=== PATIENT | female | born 1965 | race Caucasian/White ===

== ENCOUNTER 2024-11-07 21:01 | Inpatient (IN) | payer OTHER, SELFPAY ==
[2024-11-07] VITALS (8 sets, daily range): BP systolic 116–148; BP diastolic 74–96; BMI 36.1; BMI 34.9
--- NOTE | 2024-11-07 15:37 | ED.GENMED ---
History of Present Illness
General
Chief Complaint: Breathing Problem
Source: patient, ambulance crew, alf and alf records
Exam Limitations: none
Time Seen by Provider: 11/07/24 15:22
Nursing documentation reviewed up to this point in time: agreed with
History of Present Illness
History of Present Illness:
59-year-old female with past medical history of seizures, hypertension, diabetes, reported history of CVA, history of alcohol use, anxiety/depression, bipolar disorder, prior suicidality, history of VSD repair in childhood who presents to the
emergency room from [facility] via EMS for evaluation of shortness of breath. Patient notes that she has been at [facility] for about a month. She says that she went there after suffering a minor stroke that required
rehab. She is not sure where she received her care for stroke but she says that she was hospitalized for a few days. She says that she is here today for shortness of breath that started last night. She says that in the middle of the night she
started to feel shortness of breath and heaviness in her chest and it has been consistent since onset. She reports that she has had associated mild nonproductive cough. She says she has had some swelling in the legs over the past few days. She is
not sure whether she has had any weight gain. She denies any abdominal pain, nausea, vomiting. Denies fever or chills. She denies any URI symptoms. She says that she disclosed her symptoms to the physician at [facility] this morning who
reportedly sent her for an x-ray of the chest. Patient says that she was told chest x-ray was abnormal but she is not sure exactly what it showed. She was referred to the ER for assessment.
In triage patient suicide screen was positive. Patient says that she has a history of suicidal thoughts and depression. She says that she has had some suicidal thoughts today but she is very vague about them and it sounds like she is more
overwhelmed by her symptoms than anything. Denies specific plan.
Review of Systems
Review of Systems
All Other Systems: ROS reviewed and negative except as documented in HPI and ROS
Constitutional: Denies fever or chills
Respiratory: Reports cough and trouble breathing
Cardiac: Reports chest pain; Denies diaphoresis or palpitations
ABD/GI: Denies abdominal pain, nausea or vomiting
: Denies flank pain
Musculoskeletal: Reports edema; Denies neck pain or back pain
Neurological: Denies dizzy or headache
Psychiatric: Reports depression, anxiety and suicidal
Phy Exam
Physical Exam
Physical Exam:
General: Awake, alert, oriented x3; tearful and anxious
Head: Normocephalic, atraumatic
Eyes: Conjunctiva normal, sclera anicteric
Throat: Airway intact, handling secretions
Neck: Trachea midline, no JVD noted
Lungs: Occasional coughing, no tachypnea, no hypoxia; she has no focal wheezing or rales
Heart: Tachycardia with regular rhythm, no murmurs, gallops, or rubs
Abd: Soft, non distended, nontender
Neuro: Grossly intact
Extremities: Patient has edema in the lower extremities bilaterally +1; good pulses throughout
Psych: Depressed mood, anxious affect
Scores
Heart Failure Risk
Heart Failure Risk Score: Not Applicable
Heart Score for Chest Pain Patients
STEMI patient?: Not applicable
Withdrawal Assessment of Alcohol
Withdrawal Assessment Completed?: Not applicable
Course
Orders/Labs/Results
Orders:
Orders
11/07/24 15:17
Electrocardiogram (*1) Urgent
Reason for Study: Shortness of Breath
11/07/24 15:18
EKG- Treatment ONCE
11/07/24 15:23
CR Chest Portable - 1 View Urgent
Comment:
Reason For Exam: sob
Reason Study Needs to be Portable: Unable to Transport
11/07/24 15:29
ED Special Safety Observation ONCE
Observation level: Intermittent Observation
11/07/24 15:37
Lorazepam [Ativan] 0.5 mg PO NOW STA
11/07/24 15:48
Crisis Consult Routine
Reason for Consult: suicidal ideation
11/07/24 16:06
Lorazepam [Ativan] 0.5 mg PO NOW STA
11/07/24 17:22
Complete Blood Count/With Diff Urgent
Comprehensive Metabolic Panel Urgent
Pro-BNP [NT-proBNP] Urgent
Troponin I Urgent
Midazolam HCl [Versed] 1 mg IV NOW STA
11/07/24 18:02
CT Chest PE Study Urgent
Comment:
Reason For Exam: SOB, tachycardia
11/07/24 18:12
Diphenhydramine [Benadryl] 50 mg IV NOW STA
Hydrocortisone Sod Succinate [Solu-Cortef] 200 mg IV NOW STA
11/07/24 19:13
Urine Drug Abuse Screen Urgent
Date Specimen was Collected: 11/07/24
Time Specimen was Collected: 19:13
11/07/24 19:35
Midazolam HCl [Versed] 2 mg .ROUTE .STK-MED ONE
11/07/24 19:37
Famotidine [Pepcid] 20 mg IV NOW STA
11/07/24 19:40
Midazolam HCl [Versed] 1 mg IV NOW STA
11/07/24 20:00
Furosemide [Lasix] 40 mg IV NOW STA
11/07/24 20:01
PSYCHIATRY CONSULT Urgent
Consulting Provider: Leif Harding
Was physician already notified: Yes
Abnormal Lab Results
11/07/24
17:22
RBC 3.87 L 10^6/uL
(4.20-5.40)
Hgb 11.1 L g/dL
(12.0-16.0)
Hct 33.4 L %
(37.0-47.0)
MPV 11.4 H fL
(7.4-10.4)
Absolute Monos (auto) 0.8 H 10^3/uL
(0.1-0.6)
BUN 24 H mg/dl
(7-17)
Glucose 180 H mg/dl
(70-99)
Total Protein 8.3 H g/dl
(6.3-8.2)
11/07/24 17:22
11/07/24 17:22
Vital Signs
Initial and Last Documented VS:
Initial Vital Signs
BP
148/88
11/07/24 15:17
Last Documented Vital Signs
Temp Pulse Resp BP Pulse Ox
36.5 C 100 17 133/87 97
11/07/24 15:18 11/07/24 19:15 11/07/24 19:15 11/07/24 19:00 11/07/24 16:37
MDM/Problems Addressed
Differential Diagnosis Includes:
Dysrhythmia/atrial fibrillation, congestive heart failure, pneumonia, pulmonary embolism, anxiety, alcohol withdrawal
MDM/Problems Addressed:
59-year-old female presents to the ER from rehab at [facility] for evaluation of shortness of breath as described above. She is tachycardic but otherwise normal vitals. EKG reviewed and shows tachycardia with some anterior lateral T wave
inversions/ST depressions�no priors available for comparison. Plan to place an IV check labs including a CBC and a CMP, troponin, proBNP. Will check chest x-ray. Regarding her positive suicide screen�patient reports vague thoughts, no specific
plan, correlates to her symptoms. Will place on intermittent observation for now, will need psychiatry assessment once her acute medical issues are addressed�will discuss with crisis to assess for now.
Labs reviewed: CBC shows marginal anemia, CMP no clinically significant abnormalities�random glucose 180 in the setting of known diabetes. Her troponin is undetectable. proBNP not elevated. Chest x-ray shows no signs of congestive heart failure
or pneumonia. At this point patient remains tachycardic and with nothing acute noted on x-ray, recent hospitalization noted I think she needs to be evaluated for pulmonary embolism. Sent for a CT chest to rule out PE.
CT PE reviewed and does show signs consistent with some pulmonary edema; although her proBNP is not markedly elevated she does have increased leg swelling, shortness of breath, cough and overall clinical picture concerning for congestive heart
failure. No documented history. Will treat with IV Lasix. Admit for continued management. She has had continued severe anxiety requiring anxiolytics here. She has continued to complain of suicidality. Case was discussed with psychiatry to
consult while admitted. Discussed case with hospitalist.
Chronic conditions affecting care:
Anxiety/depression, hypertension, diabetes
*Radiology
Radiology exam reviewed: preliminary read by ED provider
*Pulse Oximetry
SaO2: 96
Oxygen Mode of Delivery: Room air
Patient hypoxic: no (96%)
*EKG
Interpreted by ED Provider?: Yes
Heart Rate: 121
Rate: tachycardiac
Rhythm: sinus tachycardia
[place]: normal axis
Interval: normal interval
QRS Pattern: normal QRS
Ischemia: ST depression (Anterior lateral ST and T wave abnormalities)
*Critical Care Note
Total Time (30-74mins, 75-104mins- exclusive of procedures): Not Applicable
Data Reviewed
Source: patient, ambulance crew, alf and alf records
Patient Management
Discussion with other providers: Hospitalist (Discussed with hospitalist) and [employer] (Discussed with psychiatry)
Escalation/DeEscalation of care consider admission/obs:
Admission indicated
ED Attending Note
-
Portions of this chart may have been created with voice recognition software.� Occasional wrong word or��sound alike� substitutions may have occurred due to the inherent limitations of voice recognition software.
Discharge Plan
Departure
Patient Disposition: Admit
Date of Disposition: 11/07/24
Time of Disposition: 20:03
Admit to doctor: Odette
Presentation/result/management discussed w/ accepting MD/DO: Hospitalist
Discharge Problem:
CHF (congestive heart failure), Suicidal ideations, Anxiety
Prescriptions:
No Action
clonidine HCl 0.1 mg Tablet
0.1 mg PO TID
acetaminophen [Tylenol] 325 mg Tablet
650 mg PO Q6HPRN PRN (Reason: mild pain)
lidocaine 4 % Adhesive Patch,Medicated
1 patch TOPICAL DAILY
divalproex 250 mg Tablet,Delayed Release (Dr/Ec)
250 mg PO BID
lorazepam 0.5 mg Tablet
0.5 mg PO BIDPRN PRN (Reason: anixety)
magnesium hydroxide [Milk of Magnesia] 400 mg/5 mL Suspension
2,400 mg PO [id number] PRN (Reason: constipation)
bisacodyl [Dulcolax (bisacodyl)] 10 mg Suppository
10 mg OH DAILYPRN PRN (Reason: if no bm aftr mom)
diphenhydramine HCl [Benadryl] 25 mg Capsule
25 mg PO DAILYPRN PRN (Reason: allergies)
promethazine 25 mg Tablet
25 mg PO Q6HPRN PRN (Reason: nausea)
Fleet Enema 19-7 gram/118 mL Enema
118 ml OH DAILYPRN PRN (Reason: if no bm aftr duloclax)
docusate sodium [Colace] 100 mg Capsule
100 mg PO BID
zolpidem [Ambien] 5 mg Tablet
5 mg PO HSPRN PRN (Reason: sleep)
furosemide [Lasix] 20 mg Tablet
10 mg PO DAILY
nystatin 100,000 unit/gram Powder
1 applic TOPICAL BIDPRN PRN (Reason: b/l breasts)
lorazepam 1 mg Tablet
1 mg PO TID
pregabalin [Lyrica] 50 mg Capsule
50 mg PO DAILY
pregabalin [Lyrica] 100 mg Capsule
100 mg PO HS
estradiol 10 mcg Tablet
10 mcg VAGINAL MOTH@2100
buprenorphine-naloxone [Suboxone] 8-2 mg Film
2 film BUCCAL DAILY
ubrogepant 50 mg Tablet
50 mg PO [id number] PRN (Reason: migraines)
Referrals:
Nahun Fuller, [Family Provider, Internal Medicine]
Interventions
Interventions:
*Risk Screen - Suicide Last Done: 11/07/24 15:20
*General Assessment Last Done: 11/07/24 15:22
*Neglect/Abuse Screening Last Done: 11/07/24 15:20
*ED- Fall Risk Assessment Last Done: 11/07/24 15:22
*ED COVID-19 Vaccine History Last Done: 11/07/24 15:22
ED- Cardiac Assessment Last Done: 11/07/24 15:24
ED- Pulmonary Assessment Last Done: 11/07/24 15:24
Discharge Date and Time
Print Language: TAJIK
[2024-11-07] MEDS: ATIVAN 0.5 MG PO ×2 (15:48→16:06)
--- NOTE | 2024-11-07 16:43 | VATNOTE ---
attempted x3 vascular access by this VAT RN; obtained only 1 lab; another VAT RN attempted as well without success. PCN made aware ED MD to attempted USG IV.
[2024-11-07 17:32] LABS: Hematocrit 33.4 % (37.0-47.0); Hemoglobin 11.1 g/dL (12.0-16.0); Mean Corp Hgb Conc. 33.2 g/dL (33.0-37.0); Mean Corpuscular Volume 86.3 fL (81.0-99.0); Nucleated Red Blood Cells % 0 %; Platelet Count 242 10^3/uL (130-400); Red Cell Dist. Width 13.7 % (11.5-14.5)
[2024-11-07 17:46] LABS: ALT (SGPT) 25 U/L (0-35); AST (SGOT) 31 U/L (14-36); Albumin 4.5 g/dl (3.5-5.0); Alkaline Phosphatase 99 U/L (38-126); Blood Urea Nitrogen 24 mg/dl (7-17); Calcium 9.0 mg/dl (8.4-10.2); Carbon Dioxide 26 mmol/L (22-30); Chloride 99 mmol/L (98-107); Estimated Creatinine Clearance 116 ml/min; Glucose 180 mg/dl (70-99); Potassium 3.8 mmol/L (3.5-5.1); Sodium 137 mmol/L (135-145); Total Protein 8.3 g/dl (6.3-8.2); eGFR > 60.00
[2024-11-07] MEDS: VERSED 1 MG IV ×2 (17:53→19:40)
[2024-11-07 17:57] LABS: Troponin I < 0.012 ng/ml
[2024-11-07] MEDS: BENADRYL 50 MG IV (18:21)
[2024-11-07] MEDS: SOLU-CORTEF 200 MG IV (18:21)
[2024-11-07] MEDS: PEPCID 20 MG IV (19:46)
--- NOTE | 2024-11-07 20:24 | HPS.HSE ---
Family Physician
-
Family Physician: Nahun Fuller, DO
Chief Complaint
-
sob
History of Present Illness
59-year-old female with past medical history of seizures, hypertension, diabetes, reported history of CVA, history of alcohol use, anxiety/depression, bipolar disorder, prior suicidality, history of VSD repair in childhood who presents to the
emergency room from [facility] via EMS for evaluation of shortness of breath which started last night. patient stated chest heaviness. stated sob with exertion. she is not able to lay flat due to sob. she gained 12lbs in two
boths. she is also noted to haveb/l LE edema. right leg is greater than the left. stated cough. denied fever, chills. denied ALBA< dizzy or syncope.denied abdominal pain,nv,d. denied dysuria or hematuria.
Patient notes that she has been at [facility] for about a month. She says that she went there after suffering a minor stroke that required rehab. She is not sure where she received her care for stroke but she says that she was hospitalized for a
few days. she does not want to go back to [place]
she is is depressed and sad because her son is in marine at [place]. her at [place].In triage patient suicide screen was positive. Patient says that she has a history of suicidal thoughts and depression. She says that she has had
some suicidal thoughts today but not sure how she will do that.
chest x ray with pulmonary edema. she received Lasix in ER. admitting for further management.
Medical History
Past Medical History
Past Medical History: Reports Other
Additional Past Medical History:
Alcohol abuse
Seizures
Hypertension
Chronic pain
Depression
Benign neoplasm of meninges
Anxiety
Epilepsy
Suicidal ideation
Bipolar
Type 2 diabetes
Insomnia
Constipation
Migraine
CVA with left-sided weakness
Past Surgical History: Reports None
Social History
Tobacco: Non-smoker
Alcohol: None
Drug: None
Personal: Single
Living: Custodial
Family History
Family History: Not pertinent
Allergies / Home Medications
Allergies reflects when Allergies were last updated in [facility].
Home Medications with original date entered in [facility]
Allergy/Medication List:
Allergies
Allergy/AdvReac Type Severity Reaction Status Date / Time
carrot Allergy Unknown Verified 11/07/24 15:55
ibuprofen Allergy Unknown Verified 11/07/24 15:55
Iodinated Contrast Media Allergy Unknown Verified 11/07/24 15:55
ketorolac Allergy Unknown Verified 11/07/24 15:55
naproxen Allergy Unknown Verified 11/07/24 15:55
NSAIDS (Non-Steroidal Allergy Unknown Verified 11/07/24 15:55
Anti-Inflamma
Home Medications
acetaminophen 325 mg tablet (Tylenol) 650 mg PO Q6HPRN PRN mild pain 11/07/24
bisacodyl 10 mg rectal suppository (Dulcolax (bisacodyl)) 10 mg MT DAILYPRN PRN if no bm aftr mom 11/07/24
buprenorphine 8 mg-naloxone 2 mg sublingual film (Suboxone) 2 film buccal DAILY 11/07/24
clonidine HCl 0.1 mg tablet 0.1 mg PO TID 11/07/24
diphenhydramine HCl 25 mg capsule (Benadryl) 25 mg PO DAILYPRN PRN allergies 11/07/24
divalproex 250 mg tablet,delayed release 250 mg PO BID 11/07/24
docusate sodium 100 mg capsule (Colace) 100 mg PO BID 11/07/24
estradiol 10 mcg vaginal tablet 10 mcg vaginal MOTH@2100 11/07/24
furosemide 20 mg tablet (Lasix) 10 mg PO DAILY 11/07/24
lidocaine 4 % topical patch 1 patch topical DAILY lower back 11/07/24
lorazepam 0.5 mg tablet 0.5 mg PO BIDPRN PRN anixety 11/07/24
lorazepam 1 mg tablet 1 mg PO TID 11/07/24
magnesium hydroxide 400 mg/5 mL oral suspension (Milk of Magnesia) 2,400 mg PO [id number] PRN constipation 11/07/24
nystatin 100,000 unit/gram topical powder 1 applic topical BIDPRN PRN b/l breasts 11/07/24
pregabalin 100 mg capsule (Lyrica) 100 mg PO HS 11/07/24
pregabalin 50 mg capsule (Lyrica) 50 mg PO DAILY 11/07/24
promethazine 25 mg tablet 25 mg PO Q6HPRN PRN nausea 11/07/24
sodium phosphates 19 gram-7 gram/118 mL enema (Fleet Enema) 118 ml MT DAILYPRN PRN if no bm aftr duloclax 11/07/24
ubrogepant 50 mg tablet 50 mg PO [id number] PRN migraines 11/07/24
zolpidem 5 mg tablet (Ambien) 5 mg PO HSPRN PRN sleep 11/07/24
Review of Systems
-
Constitutional: Reports No Symptoms
EENT: Reports No Symptoms
Respiratory: Reports Cough and Trouble Breathing
Cardiac: Reports Chest Pain
Abdomen/GI: Reports No Symptoms
: Reports No Symptoms
Musculoskeletal: Reports Edema (Lower extremities edema)
Skin: Reports No Symptoms
Neurological: Reports No Symptoms
Endocrine: Reports No Symptoms
Hematologic/Lymphatic: Reports No Symptoms
Psych: Reports No Symptoms
Physical Exam
Vital Signs
Vital Signs
Temp Pulse Resp BP Pulse Ox
97.7 F 100 17 133/87 97
11/07/24 15:18 11/07/24 19:15 11/07/24 19:15 11/07/24 19:00 11/07/24 16:37
Physical Exam
General: Well Developed, Well Nourished and No Apparent Distress
HEENT: NormoCephalic, Moist mucous membranes and Atraumatic
Respiratory: Clear
Cardiac: S1/S2, Regular Rhythm and Peripheral Edema (Bilateral lower extremities edema. Right greater than left); No Murmur or Rub
GI: Soft, Non Tender, Non Distended and Normal Bowel Sounds; No Organomegaly
Rectal: Deferred by Provider
Musculoskeletal: No Clubbing, No Cyanosis and No Edema
Skin: No Rash
Neuro: AO x 3 and Nonfocal/grossly intact
Laboratory Results
-
11/07/24 17:22
11/07/24 17:22
Laboratory Results
Total Bilirubin 0.3 mg/dl (0.2-1.3) 11/07/24 17:22
AST 31 U/L (14-36) 11/07/24 17:22
ALT 25 U/L (0-35) 11/07/24 17:22
Alkaline Phosphatase 99 U/L (38-126) 11/07/24 17:22
Troponin I < 0.012 ng/ml 11/07/24 17:22
Data Reviewed
-
Diagnostic Radiology: Report Reviewed by me
CT Scan: Report Reviewed by me
Lab Data: Labs Reviewed by me
Impression/Plan
-
#concern for CHF
-iv diuretics continued
- Strict PRAVEENA, daily weight
- Fluid restriction
-Obtain echocardiogram
- Chest CT with no evidence of PE.Pulmonary vascularity at least top normal and suspected minimal groundglass opacity especially in the right upper lobe. Findings are nonspecific and could represent mild changes of acute pulmonary edema.
- Chest x-ray with impression of Heart and pulmonary vascularity at least top normal.
# History of seizures/epilepsy
- Divalproex continued
# History of bipolar/anxiety/ depression/suicidal ideation
- Lorazepam continued
- Lyrica continued
-Ambien for sleep
- Psych consulted
#? History of CVA with left-sided weakness
# DVT prophylaxis
- Lovenox
# CODE STATUS
- Full code
[2024-11-07] MEDS: LASIX 40 MG IV (20:35)
[2024-11-07] MEDS: BENADRYL 25 MG IV (20:41)
--- NOTE | 2024-11-07 21:23 | W.PN.UPDATE ---
Update Note
Progress Note Update
Patient seen in conjunction with ITALIA. I agree the findings on exam physical. I concur with the assessment and plan.
This is a few 59-year-old female with past medical history significant for anxiety depression hypertension CVA, history of seizures, history of alcohol use, bipolar and suicidality also has a prior history of VSD repair and scheduled presenting to
the emergency department from senior care facility with complaint of shortness of breath.
Shortness of breath started last night in the middle of the night with heaviness in her chest. She reports that she has been consistent since. She reports a mild associated nonproductive cough. She also reports some swelling in her lower
extremities in the last few days. No weight gain appreciated. She denies having palpitations lightheadedness nausea vomiting or dizziness. She denies having any fevers or chills. She denies other URI symptoms. She disclosed the symptoms at her
senior care facility and she was sent for an x-ray. She was told the x-ray was abnormal and was sent to the emergency department.
She also reports suicidal ideation and severe anxiety.
Psych has been consulted to see patient in AM.
In the Emergency Department she was afebrile, blood pressure was 128/90 with a pulse of 94 and she was satting 94% on room air. CBC was unremarkable, electrolytes. Creatinine was normal. ECG was nonischemic with sinus tachycardia at 120.
Troponin was negative. BNP was negative.
Chest x-ray shows top normal pulmonary vascular findings as well as CT scan which also shows top normal pulmonary vascular findings which could be consistent with mild pulmonary edema. No PE.
SOB -possible CHF with mild pulmonary edema on CT. Weight gain, complained also of pedal edema.
- Admitted for CHF workup
- BNP is negative but she is obese
- Cycle cardiac enzymes since acute onset
- TSH
- Lipid panel, A1c
- Daily weights and ins and outs
- Will start with Lasix 20 mg IV daily for now
- Continue antihypertensives
Psych -depression/anxiety, grief with the recent loss of spouse and recent transfer of son into [place]. She has symptoms that ideation but no attempt or plan.
- Psych consulted
- Will monitor for now no indication for one-to-one
- Continue valproic acid lorazepam
CVA -unclear when she had this history, records from long-term did not indicate any history of CVA and she is not on any medications to suggest CVA
- Obtain records from long-term in a.m.
DVT prophylaxis�Lovenox subcu
CODE STATUS�full code
[2024-11-07] MEDS: AMBIEN 5 MG PO (22:29)
[2024-11-07] MEDS: CATAPRES 0.1 MG PO (22:29)
[2024-11-07] MEDS: ATIVAN 1 MG PO (22:29)
[2024-11-07] MEDS: LYRICA 100 MG PO (22:45)
[2024-11-07] MEDS: PHENERGAN 25 MG PO (22:45)
--- NOTE | 2024-11-07 22:49 | PTCARENOTE ---
Received pt from ED and pt admitted to [id number] via stretcher. Pt able to ambulate to bed. Pt reports being 'annoyed' and 'just wants to be left alone.' Attempted to ask admission questions. Pt refusing GI assessment and skin assessment. Nabila
GLENDA Salazar made aware. 1:1 at bedside.
--- NOTE | 2024-11-07 23:40 | PTCARENOTE ---
Pt refusing MRSA swab and blood draw for Trop due. 1:1 remains at bedside.
[2024-11-08] VITALS (7 sets, daily range): BP systolic 104–135; BP diastolic 68–96; O2SAT 93; BMI 34.9
--- NOTE | 2024-11-08 04:43 | DOWNTIME ---
There was a [employer] Downtime on 11/08/2024 from 0100 to 11/08/2024 at 0235. Downtime documentation of patient's care, including medication administrations, has been reconciled in the electronic record per guidelines. Refer to the
patient's paper chart under the miscellaneous tab to see printed paper medication records and downtime forms.
--- NOTE | 2024-11-08 05:32 | PTCARENOTE ---
Addendum entered by Lavinia Adkins RN 11/08/24 05:34:
Nabila Salazar NP aware.
Original Note:
Patient continues to refuse nursing interventions. Vital signs and phlebotomy not done at this time. 1:1 remains at bedside.
[2024-11-08] MEDS: COLACE 100 MG PO ×2 (07:55→21:11)
[2024-11-08] MEDS: CATAPRES 0.1 MG PO ×3 (07:55→21:11)
[2024-11-08] MEDS: DEPAKOTE (12 HR RELEASE) 250 MG PO ×2 (07:55→21:11)
[2024-11-08] MEDS: LYRICA 50 MG PO (07:55)
[2024-11-08] MEDS: LIDOCAINE 4% PATCH TOPICAL (07:56)
[2024-11-08] MEDS: LASIX 20 MG IV (07:56)
[2024-11-08] MEDS: ATIVAN 1 MG PO ×3 (07:57→21:11)
--- NOTE | 2024-11-08 08:19 | CON.CAR ---
Addendum entered and electronically signed by Tyrone Mc MD 11/08/24 10:57:
I saw and examined the patient.
The CLINICIAN ONCOLOGY's note was reviewed and I agree with the note.
Comment:
59 y/o female with PMH seizures, hypertension, hx recent CVA per patient- details unknown and not clear if this is confirmed medically per chart, bipolar disorder, anxiety/depression, ETOH use (per patient only occasionally), obesity, LE edema on
low dose lasix, and hx VSD repair as child who is here for evaluation. Yesterday had nausea and vomiting which then caused palpitations, shortness of breath, and chest pain which lasted for hours and is still there. Troponin has been negative x 2.
ECG showed nonspecific ST�T wave changes. Chest CT showed concern for pulmonary edema. She has been receiving IV Lasix. Her symptoms have not improved. She continues to have chest pain and shortness of breath.
Physical exam: Regular rate and rhythm, no murmurs, clear lungs bilaterally, no lower extremity edema
She has ongoing dyspnea and chest pain. She has had 2 negative troponins despite almost 24 hours of chest pain. Very low suspicion for ACS. Can consider outpatient stress testing if her symptoms persist. She had some mild pulmonary edema on
chest x-ray but BNP is normal (albeit in the setting of obesity), she examines euvolemic, and her symptoms have not improved with IV Lasix. I am not sure how much of her dyspnea can be attributed to the mild pulmonary edema on CXR/chest CT. We
will check an echocardiogram. If her echocardiogram is normal, we can switch her back to her home p.o. Lasix and she can follow-up with outpatient cardiology. Continued dyspnea workup per primary team.
Original Note:
Consultation
Consultation Request
Date/Time Consultation Requested: 11/08/24713
Date/Time Consultation Performed: 11/08/24814
Requesting Provider: Dr. Carney
Performing Provider: Kayley ECHAVARRIA for Dr. Mc
Reason for Consultation: concern for CHF
Medical History
-
Chief Complaint: SOB
History of Present Illness:
59 y/o female with PMH seizures, hypertension, hx recent CVA per patient- details unknown and not clear if this is confirmed medically per chart, bipolar disorder, anxiety/depression, ETOH use (per patient only occasionally), obesity, LE edema on
low dose lasix, and hx VSD repair as child who is here for evaluation. She reports yesterday she had vomiting and afterward felt heart racing, SOB, and chest discomfort (sharp) for hours. Nothing made it better or worse. BNP and troponin are normal.
EKG shows ST with ST/T abnormalities anterior and laterally. She is on 1:1 currently for suicidal ideation. Her accounts receivable coordinator (hasn't seen in a while, but was at [facility] and [facility]- records to be requested). She was calm and cooperative
for my assessment, but prior to my coming in the room she was yelling and tearful to staff.
Past Medical History
Past Medical History: CVA (per patient, details unknown), HTN, Seizures, Psychiatric and Other (as above)
Social History
Tobacco: Non-Smoker
Alcohol: Occasional (occasional per patient)
Living: Other (facility)
Family History
Family History: CAD (mom of [place] 62-63)
Allergies / Home Medications
Allergy/AdvReac Type Severity Reaction Status Date / Time
carrot Allergy Unknown Verified 11/07/24 15:55
ibuprofen Allergy Unknown Verified 11/07/24 15:55
Iodinated Contrast Media Allergy Unknown Verified 11/07/24 15:55
ketorolac Allergy Unknown Verified 11/07/24 15:55
naproxen Allergy Unknown Verified 11/07/24 15:55
NSAIDS (Non-Steroidal Allergy Unknown Verified 11/07/24 15:55
Anti-Inflamma
�Medication �Instructions �Recorded �Confirmed �Type
acetaminophen 325 mg tablet 650 mg PO Q6HPRN PRN mild pain 11/07/24 11/07/24 History
(Tylenol)
bisacodyl 10 mg rectal suppository 10 mg MI DAILYPRN PRN if no bm 11/07/24 11/07/24 History
(Dulcolax (bisacodyl)) aftr mom
buprenorphine 8 mg-naloxone 2 mg 2 film buccal DAILY 11/07/24 11/07/24 History
sublingual film (Suboxone)
clonidine HCl 0.1 mg tablet 0.1 mg PO TID 11/07/24 11/07/24 History
diphenhydramine HCl 25 mg capsule 25 mg PO DAILYPRN PRN allergies 11/07/24 11/07/24 History
(Benadryl)
divalproex 250 mg tablet,delayed 250 mg PO BID 11/07/24 11/07/24 History
release
docusate sodium 100 mg capsule 100 mg PO BID 11/07/24 11/07/24 History
(Colace)
estradiol 10 mcg vaginal tablet 10 mcg vaginal MOTH@2100 11/07/24 11/07/24 History
furosemide 20 mg tablet (Lasix) 10 mg PO DAILY 11/07/24 11/07/24 History
lidocaine 4 % topical patch 1 patch topical DAILY lower back 11/07/24 11/07/24 History
lorazepam 0.5 mg tablet 0.5 mg PO BIDPRN PRN anixety 11/07/24 11/07/24 History
lorazepam 1 mg tablet 1 mg PO TID 11/07/24 11/07/24 History
magnesium hydroxide 400 mg/5 mL 2,400 mg PO [id number] PRN 11/07/24 11/07/24 History
oral suspension (Milk of Magnesia) constipation
nystatin 100,000 unit/gram topical 1 applic topical BIDPRN PRN b/l 11/07/24 11/07/24 History
powder breasts
pregabalin 100 mg capsule (Lyrica) 100 mg PO HS 11/07/24 11/07/24 History
pregabalin 50 mg capsule (Lyrica) 50 mg PO DAILY 11/07/24 11/07/24 History
promethazine 25 mg tablet 25 mg PO Q6HPRN PRN nausea 11/07/24 11/07/24 History
sodium phosphates 19 gram-7 118 ml MI DAILYPRN PRN if no bm 11/07/24 11/07/24 History
gram/118 mL enema (Fleet Enema) aftr duloclax
ubrogepant 50 mg tablet 50 mg PO [id number] PRN migraines 11/07/24 11/07/24 History
zolpidem 5 mg tablet (Ambien) 5 mg PO HSPRN PRN sleep 11/07/24 11/07/24 History
Review of Systems
-
History Source: Patient
All other systems: Negative unless noted
Respiratory: Trouble Breathing
Cardiac: Chest Pain
Abdomen/GI: Nausea and Vomiting
Musculoskeletal: Edema
Physical Exam
Vital Signs
Temp Pulse Resp BP Pulse Ox
97.9 F 92 16 135/96 97
11/08/24 07:42 11/08/24 07:42 11/08/24 07:42 11/08/24 07:42 11/08/24 07:42
Lab Results
11/07/24 17:22
11/07/24 17:22
Troponin I Cancelled 11/08/24 03:45
Anq-K-[id number] Pept 89.7 pg/ml 11/07/24 17:22
Physical Exam
General: Well Developed, Well Nourished and No Apparent Distress
HEENT: Normocephalic and Anicteric
Respiratory: Clear and Non Labored Respirations
Cardiac: Regular Rhythm and Peripheral Edema (mild BLE)
Musculoskeletal: Edema (mild)
Skin: Warm and Dry
Neuro: AO x 3
Psych: Calm (as above)
Impression / Plan
-
Suicidal ideation:
-on 1:1 currently
-psychiatry is consulted
SOB/CP:
-first trop normal. She has agreed to get second trop soon per nursing (has been refusing). Will also update EKG since HR no longer fast. Check echo- she is agreeable to this.
-there is concern for CHF, type unknown. She is not clearly volume overloaded to my assessment, but CT scan showed possible pulmonary edema. BNP 89.7. Very minimal BLE edema on my review. She thinks she has gained about 5 lbs in 2 months, but has
been eating vending machine food at her facility, she tells me. We can check echo and see how she responds to IV Lasix. This requires intensive monitoring.
Vomiting:
-w/u per primary team
HTN:
-continue meds and monitor with diuresis
Hx Bipolar disorder, anxiety, depression:
-psych consulted
-on medications
Hx seizures:
-on medical therapy
Hx VSD repair as child
Data Reviewed
-
EKG: Tracing Personally Visualized and interpreted (ST at 121 BPM, anterior and lateral ST/T abnormality)
Radiology: Report Reviewed by me (CXR: Heart and pulmonary vascularity at least top normal.)
CT Scan: Report Reviewed by me (CT scan: No evidence of central pulmonary embolism. Please see above comments. Pulmonary vascularity at least top normal and suspected minimal groundglass opacity especially in the right upper lobe. Findings are
nonspecific and could represent mild changes of acute pulmonary edema.)
Medical Tests (Nuc Med, Echo etc): Other (echo ordered)
Labs: Labs Reviewed by me
Old Records: Requested
[2024-11-08] MEDS: SUBUTEX 16 MG SL (08:52)
--- NOTE | 2024-11-08 09:13 | W.PN.HOSP.TC ---
Today's Communication/Plan
-
see PN
Assessment / Plan
Assessment / Plan
59yo F with PMHx of seizure d/o, VSD repair at age 12, HTN, Hx of opioid dependence on Suboxone, neuropathy, chronic nausea from Suboxone, anxiety sent from [facility] due to ongoinf SOB without hypoxia. In ED found with suicidal thoughts, so crisis called
for admission to inpatient psychiatry, however due to ongoinf medical issues -was not accepted. Managed for dyspnea due to possible CHF as mild pulmonary edema seen on CT chest. Also started to complain f epigastric abd pain with bloating and
distension next day after admission
A/P:
#Dyspnea, possible acute CHF, unspecified
proBNP low
serial trop
Lasix, daily weights, electrolytes, follow Cr
Cardiology consult
Echo
telemetry
No pulmonary embolism on CT
#Epigastric abdominal pain
with distension, tenderness to palpation - Reasonable CT abd/pelvs, patient agreeable
Tums
#MDD with suicidal ideation
Suicidal precautions
1:1
psychiatric consult
Eventual IP by CM
#Essential HTN
#Hx of opioid dependency
#Neuropathy
#Seizure d/o
#Insomnia
cont home meds
Ativan PRN
seizure precautions
#Mild anemia
outpatient w/u
DVT ppx lovenox
Full code
I have spent at least 58min reviewing chart, test results, communication with consultants and providing diret patient care
Anticipated Discharge: 24 - 48 hours
Subjective/Interval History
-
Date of Service: November 08, 2024
Objective Data
-
Labs:
Laboratory Results
11/08/24
06:00
Total Bilirubin Pending
AST Pending
ALT Pending
Alkaline Phosphatase Pending
Vital Signs:
Vital Signs
Temp Pulse Resp BP Pulse Ox
97.9 F 92 16 135/96 97
11/08/24 07:42 11/08/24 07:42 11/08/24 07:42 11/08/24 07:42 11/08/24 07:42
Review of Systems
-
History Source: Patient
All other systems: Reviewed and negative
Respiratory: Reports Trouble Breathing (when flat)
Abdomen/GI: Reports Abdominal Pain (epigastric), Nausea and Bloated
Physical Exam
-
General: Comfortable
HEENT: Normocephalic
Respiratory: Clear to Auscultation
Cardiac: Regular Rhythm
GI: Tender and Distended
Musculoskeletal: No Clubbing, No Cyanosis, Edema, Right Lower Extrem and Edema, Left Lower Extrem
Skin: Warm
Neuro: Awake, Alert, Oriented and AO x 3
Psych: Suicidal
[2024-11-08] MEDS: PHENERGAN 25 MG PO ×2 (09:50→21:11)
[2024-11-08 09:52] LABS: Lipase 60 U/L (23-300)
[2024-11-08] MEDS: SOLU-CORTEF 200 MG IV ×2 (09:55→15:25)
[2024-11-08] MEDS: BENADRYL 25 MG PO (09:58)
[2024-11-08 10:15] LABS: AST (SGOT) 30 U/L (14-36); Albumin 4.5 g/dl (3.5-5.0); Alkaline Phosphatase 92 U/L (38-126); HDL Cholesterol 40 mg/dl; LDL Cholesterol, Calculated 90 mg/dl; Magnesium 1.6 mg/dl (1.6-2.3); Total Protein 8.4 g/dl (6.3-8.2); Very Low Density Lipoprotein 34 mg/dl (0-30)
[2024-11-08 10:18] LABS: Depakane 48.8 ug/ml (50.0-120.0)
[2024-11-08 10:23] LABS: ALT (SGPT) 33 U/L (0-35)
[2024-11-08 10:34] LABS: Troponin I < 0.012 ng/ml
[2024-11-08 11:15] LABS: Blood Urea Nitrogen 28 mg/dl (7-17); Calcium 9.6 mg/dl (8.4-10.2); Carbon Dioxide 29 mmol/L (22-30); Chloride 99 mmol/L (98-107); Estimated Creatinine Clearance 98 ml/min; Glucose 134 mg/dl (70-99); Potassium 3.6 mmol/L (3.5-5.1); Sodium 140 mmol/L (135-145); eGFR > 60.00
--- NOTE | 2024-11-08 12:37 | CON.MD ---
Consultation - Medical
-
patient seen chart reviewed. spoke with nursing. this consult was done today november 08 2024. the patient is a 59 year old woman admitted to w complaint of sob, cough, leg swelling chest heaviness. she was found to have pulmonary edema. she
expressed suicidal thoughts hence this consult. patient has no plan or intent but she feels quite strongly that she would like to . her 28 yo son is a marine stationed in [place] just three weeks ago. her in [place]. he was a marine as
well and she still struggles with his . she made two suicide attempts for which she was hospitalized many years ago in the wake of his . she was dx ocd ptsd depressed in the past. she thinks she may have taken effexor and is not sure if it
helped. she still has ocd sx does do a lot of checking during the course of the day which interferes with her life. she does not hallucinate. she has little energy or enjoyment and has lost interest in doing crafts which was a hobby prior.
sleep is poor w difficulty falling and staying asleep appetite is not great but patient is overweight. she is also taking ativan one mg tid and ambien q hs 5 mg. another stress is her life at [facility]. she went there after a cva which left her
w weakness on her left side. she hates it there but is not confident she could live alone right now she has few social supports
past psych hx see above.s he has had some therapy in the past.
medical hx see above pulmonary edema seeing cardiology scoliosis chronic back pain for which takes buprenorphine 16 mg daily denies hx opiate abuse neuropathy (lyrica) seizure disorder (depakote) mild anemia htn dm hx cva there is a note in
chart re etoh abuse in the past which she denied to me. cxr pulmonary edema. ecg w nl qtc bun 28 depakote level 48.8 tsh nl
fh denied
substance abuse see above denies any substance abuse but chart refers to etoh use
social resides at [facility] denies hx abuse was the d of a man and lived all over us son in [place] he is her only child. patient is a . used to love crafts. used to have friends
mse alert ox3 cooperative speech and thought process nl no psychosis depressed affect ok si no plan but wishes she were cannot contract for safety at this point intelligence aver insight judgment poor
dx major depression unspecified ptsd ocd by hx
plan would start lexapro 10 mg which should help with ocd and depression and perhaps with ptsd. qtc is ok may need psych hosp when medically cleared. i do have some concern about ativan one mg tid and ambien but will leave for now. depakote is
for sz but level is subtherapeutic defer to hospitalist. check b12 and folate. will follow
--- NOTE | 2024-11-08 13:22 | W.PN.UPDATE ---
Update Note
Progress Note Update
Valproate level minimally decreased 48.8 with lower limit of normal 50.0, with no recent seizure -cont same dose and repeat level in 2-3 weeks. Presence of Valproate confirms compliance with AED
[2024-11-08] MEDS: LEXAPRO 10 MG PO (13:31)
[2024-11-08] MEDS: OMNIPAQUE 50 ML PO (14:35)
[2024-11-08] MEDS: BENADRYL 50 MG IV (15:26)
--- NOTE | 2024-11-08 16:02 | PTCARENOTE ---
Pt calm/cooperative at this time. Sitting in bed drinking oral prep for CT and watching TV. 1:1 in room. Pt tends to get easily agitated and is generally uncooperative w/ care but can be persuaded. No significant issues today. Pt made no
comments about harming self or others.
--- NOTE | 2024-11-08 17:11 | CM ---
Patient seen at bedside
IA completed
1:1
Dx: CHF exacerbation,
pulmonary edema
seen by crisis in ED
Dr. Viki marie today
PMH: past medical history of seizures, hypertension, diabetes, reported history of CVA, history of alcohol use, anxiety/depression, bipolar disorder, prior suicidality, history of VSD repair in childhood
Patient came from [facility] for skilled rehab since 09/13/24
spoke with Mary at [facility] - patient does not want to return as she was not able to have a private room
PLOF: Independent
denies JOE, BHU at [facility]
patient states would be agreeable to inpatient tx
PLAN: may need psych hospital when medically cleared, CM to continue to follow
[2024-11-08] MEDS: LOVENOX 40 MG SC (17:15)
[2024-11-08] MEDS: LYRICA 100 MG PO (21:11)
[2024-11-08] MEDS: AMBIEN 5 MG PO (21:11)
[2024-11-08] MEDS: TYLENOL 650 MG PO (21:11)
--- NOTE | 2024-11-08 21:20 | PTCARENOTE ---
Pt requesting not to be woken up for vital signs. Vital signs obtained now prior to sleep. Pt refusing temp. All other vitals stable at this time. Pt ambulatory to bathroom, brushed teeth, washed up. 1:[address] Safe
environment maintained.
[2024-11-08] MEDS: REMOVE LIDOCAINE PATCH REMOVE (21:23)
--- NOTE | 2024-11-08 21:31 | PTCARENOTE ---
Pt refusing blood draw for trop due. Pt becoming agitated with RN and [employer]TERTAIN[employer] when discussing medications being spaced out. Will monitor BP overnight. Pt continues to refuse some nursing interventions. Pt agreeable to checking BP prior to bed.
[2024-11-09 08:50] VITALS: BP 133/80
[2024-11-09] MEDS: DEPAKOTE (12 HR RELEASE) 250 MG PO ×2 (08:51→21:10)
[2024-11-09] MEDS: ATIVAN 1 MG PO ×3 (08:51→21:11)
[2024-11-09] MEDS: SUBUTEX 16 MG SL (08:51)
[2024-11-09] MEDS: CATAPRES 0.1 MG PO ×3 (08:51→21:11)
[2024-11-09] MEDS: LEXAPRO 10 MG PO (08:51)
[2024-11-09] MEDS: LYRICA 50 MG PO (08:52)
[2024-11-09] MEDS: LASIX 10 MG PO (08:52)
[2024-11-09] MEDS: COLACE 100 MG PO ×2 (08:52→21:10)
[2024-11-09] MEDS: LIDOCAINE 4% PATCH TOPICAL (08:55)
[2024-11-09 10:36] LABS: Blood Urea Nitrogen 31 mg/dl (7-17); Calcium 9.6 mg/dl (8.4-10.2); Carbon Dioxide 28 mmol/L (22-30); Chloride 99 mmol/L (98-107); Estimated Creatinine Clearance 114 ml/min; Glucose 173 mg/dl (70-99); Magnesium 1.9 mg/dl (1.6-2.3); Potassium 3.8 mmol/L (3.5-5.1); Sodium 140 mmol/L (135-145); eGFR > 60.00
[2024-11-09] MEDS: SUBUTEX 8 MG SL (10:38)
[2024-11-09 10:56] VITALS: BP 101/73
--- NOTE | 2024-11-09 11:30 | W.PN.HOSP.TC ---
Today's Communication/Plan
-
duoneb and nocturnal O2 measurement
Assessment / Plan
Assessment / Plan
59yo F with PMHx of cholecystectomy, seizure d/o, VSD repair at age 12, HTN, Hx of opioid dependence on Suboxone, neuropathy, chronic nausea from Suboxone, anxiety sent from [facility] due to ongoinf SOB without hypoxia. In ED found with suicidal thoughts,
so crisis called for admission to inpatient psychiatry, however due to ongoinf medical issues -was not accepted. Managed for dyspnea due to possible CHF as mild pulmonary edema seen on CT chest. Also started to complain of epigastric abd pain with
bloating and distension next day after admission. Cardiac w/u neg, CT chest with non-specific findings, trops neg,abd CT neg for acute findings
A/P:
#Dyspnea, acute diastolic CHF ruled out, most liekly LAVON
proBNP low
serial trop
Lasix, daily weights, electrolytes, follow Cr
Cardiology consult
Echo: Normal biventricular size and systolic function without regional wall motion abnormality. LVEF 55%, ectatic aortic root 3.8cm - outpatient follow up with echo in 1 year with polymer materials consultant
telemetry
No pulmonary embolism on CT
Check nocturnal O2
#Epigastric abdominal pain
CT abd/pelvs without acute findings
Tums
#MDD with suicidal ideation
Suicidal precautions
1:1
psychiatric consult
Eventual IP by CM
#Essential HTN
#Hx of opioid dependency
#Neuropathy
#Seizure d/o
#Insomnia
#Fatty liver
low fat diet
cont home meds
Ativan PRN
seizure precautions
#Mild anemia
outpatient w/u
DVT ppx lovenox
Full code
I have spent at least 51min reviewing chart, test results, communication with consultants and providing diret patient care
Anticipated Discharge: Within 24 hours
Subjective/Interval History
-
Date of Service: November 09, 2024
Objective Data
-
Labs:
Laboratory Results
11/09/24 11/09/24
06:00 10:14
WBC Pending
Hgb Pending
Hct Pending
Plt Count Pending
Sodium 140
Potassium 3.8
Chloride 99
Carbon Dioxide 28
BUN 31 H
Creatinine 0.6
Glucose 173 H
Calcium 9.6
Vital Signs:
Vital Signs
Temp Pulse Resp BP Pulse Ox
97.8 F 82 14 101/73 92
11/09/24 10:56 11/09/24 10:56 11/09/24 10:56 11/09/24 10:56 11/09/24 10:56
I&O
11/08/24 11/09/24 11/10/24
06:59 06:59 06:59
Intake Total 960 / 960
Balance 960 / 960
Review of Systems
-
History Source: Patient
All other systems: Reviewed and negative
Respiratory: Reports Trouble Breathing
Physical Exam
-
General: No Apparent Distress and Comfortable
HEENT: Normocephalic
Respiratory: Clear to Auscultation; Negative Wheezes
Cardiac: Regular Rhythm
GI: Soft, Nontender and Nondistended
Musculoskeletal: No Clubbing, No Cyanosis and No Edema
Neuro: Awake, Alert, Oriented and AO x 3
Psych: Calm, Depressed and Suicidal
--- NOTE | 2024-11-09 11:44 | W.PN.UPDATE ---
Update Note
Progress Note Update
patient seen chart reviewed. spoke with nursing. patient upset this am that buprenorphine was in same container as her other meds and she swallowed it instead of under her tongue. at this point, patient looking somewhat better physically. she is
less short of breath . she does however continue to be depressed with no will to live. she is to be medically cleared for dc tomorrow and i would recommend in patient psychiatry. we talked about her grief that only son is career and in
[facility] [facility]. she is proud of him but it has left her bereft. he lived w her prior to enlisting. pointed out to her that she has friends hobbies and interests and hopefully w rx of depression she can return to them. she has house in [place] left to
her by her parents which she loves and she could see that as a +. explained to her that antidep take weeks to work which dismayed her. continue one to one. no ill effects from lexapro but no + effects of course at this point either.
[2024-11-09 11:45] LABS: Folate > 20.0 ng/ml (2.76-20); Vitamin B12 881 pg/ml (239-931)
[2024-11-09 12:11] LABS: Hematocrit 32.8 % (37.0-47.0); Hemoglobin 11.0 g/dL (12.0-16.0); Mean Corp Hgb Conc. 33.5 g/dL (33.0-37.0); Mean Corpuscular Volume 85.4 fL (81.0-99.0); Nucleated Red Blood Cells % 0 %; Platelet Count 223 10^3/uL (130-400); Red Cell Dist. Width 13.6 % (11.5-14.5)
[2024-11-09 12:36] LABS: ALT (SGPT) 27 U/L (0-35); AST (SGOT) 28 U/L (14-36); Albumin 4.3 g/dl (3.5-5.0); Alkaline Phosphatase 87 U/L (38-126); Blood Urea Nitrogen 31 mg/dl (7-17); Calcium 9.6 mg/dl (8.4-10.2); Carbon Dioxide 31 mmol/L (22-30); Chloride 98 mmol/L (98-107); Estimated Creatinine Clearance 114 ml/min; Glucose 147 mg/dl (70-99); Potassium 3.4 mmol/L (3.5-5.1); Sodium 139 mmol/L (135-145); Total Protein 8.2 g/dl (6.3-8.2); eGFR > 60.00
--- NOTE | 2024-11-09 13:34 | PN.CDI ---
Addendum entered and electronically signed by Balaji Carney MD 11/09/24 14:18:
no changes
Original Note:
CDI
- -
CDI:
Physician Documentation Request
Admit Date: 11/07/24 21:01
Dear Doctor Rommel,
Please review the following and provide your response in the progress notes.
Clinical Indicators:
The diagnosis of Acute Pulmonary edema was included in the signed Chest CT 11/07/24
Additional clinical indicators in the chart include:
Pt admitted with suspected CHF however diastolic CHF was ruled out
Progress note 11/09, ' Managed for dyspnea due to possible CHF as mild pulmonary edema seen on CT chest....#Dyspnea, acute diastolic CHF ruled out, most likely LAVON...'
Per MAY pt has got 2 doses of IV Lasix one 40 mg IV on 11/07 and 20 mg IV Lasix on 11/08
Please further specify the diagnosis of pulmonary edema/ use of IV Lasix :
Acute Noncardiogenic pulmonary edema
Acute pulmonary edema
Other ( please specify)
Use of terms such as suspected, likely, concern for, or probable are acceptable for a diagnosis that is being evaluated, monitored or treated as if it exists and can be coded in the inpatient setting, when documented at the time of discharge.
Thank you,
Esperanza Rosenberg RN
CDI Specialist
Nancy Text
Please use your independent medical judgment in providing your response.
[2024-11-09 15:24] VITALS: BP 133/71
[2024-11-09] MEDS: KCL 40 MEQ PO (15:41)
--- NOTE | 2024-11-09 15:57 | CM ---
Chart reviewed. Psychiatry recommending IP psych treatment, patient agreeable. Patient asking for a nice place and private room if possible.
1:1 remains at this time
201 voluntary inpatient treatment form filled out and signed
CM called [facility] admissions ([phone]), agreed to review referral. Sent via fax [phone]
CM called [facility] ([phone]), confirmed female bed availability and can review referral. Sent via fax [phone]
Patient medically stable to d/c tomorrow if bed is offered
Plan: Voluntary IP psych placement
[2024-11-09] MEDS: LOVENOX 40 MG SC (17:58)
[2024-11-09 19:36] VITALS: BP 121/79
[2024-11-09] MEDS: REMOVE LIDOCAINE PATCH 1 PATCH REMOVE (21:11)
[2024-11-09] MEDS: LYRICA 100 MG PO (21:12)
[2024-11-09] MEDS: PHENERGAN 25 MG PO (21:17)
[2024-11-09] MEDS: AMBIEN 5 MG PO (21:17)
--- NOTE | 2024-11-09 21:21 | RESPNOTE ---
Pt agreed to overnight oximetry test but within minutes, informed by RN that the pt refused nocturnal study
[2024-11-09 22:58] VITALS: BP 124/76
[2024-11-10] MEDS: LEXAPRO 10 MG PO (08:12)
[2024-11-10] MEDS: LYRICA 50 MG PO (08:12)
[2024-11-10] MEDS: CATAPRES 0.1 MG PO ×3 (08:12→21:09)
[2024-11-10] MEDS: SUBUTEX 16 MG SL (08:12)
[2024-11-10] MEDS: COLACE 100 MG PO ×2 (08:12→21:03)
[2024-11-10] MEDS: LASIX 10 MG PO (08:12)
[2024-11-10] MEDS: ATIVAN 1 MG PO ×3 (08:12→21:06)
[2024-11-10] MEDS: LIDOCAINE 4% PATCH TOPICAL (08:13)
[2024-11-10] MEDS: DEPAKOTE (12 HR RELEASE) 250 MG PO ×2 (08:13→21:03)
[2024-11-10 08:28] VITALS: BP 141/92
[2024-11-10] MEDS: PHENERGAN 25 MG PO ×2 (08:48→21:18)
--- NOTE | 2024-11-10 10:00 | PTCARENOTE ---
Patient upset that she swallowed her suboxone stating ' I didn't know they were in the cup with my other pills'. Apologized to patient. Explained to patient that we will reinforce to nurses to separate out the pills so she can take them sublingual,
but also reinforced to patient to be her own advocate and ask before taking her medication which ones are the suboxone so that she can take it properly. Patient agreed that she would. Notified pharmacy and they reached out to primary physician to
advise.
[2024-11-10 10:29] VITALS: BP 144/96; PULSE 79; O2SAT 95
--- NOTE | 2024-11-10 10:32 | CM ---
Addendum entered by Dennise Duque 11/10/24 16:22:
Additional referral placed [facility] ( )
Addendum entered by Dennise Duque 11/10/24 16:14:
Additional referrals placed to [facility] ( ) spoke with admissions, declining due to patients need for assistance with ambulation. Clinicals faxed to [facility] ( ).
Addendum entered by Alize Carey 11/10/24 14:12:
Received call from [facility], can accept patient if patient's insurance allows as [facility] is O[facility]
Received call from [facility], can accept patient
Updated patient, agreeable to either facilities
Called Thu [phone] for pre cert, spoke w/ Lynnette. Unfortunately, [facility] and [facility] are OON. If difficulty continues to find placement for patient, can explore OON facilities. Pre cert approved for 4 days once accepting facility is
located.
Left message w/ [facility] psych, left message w/ [facility]
Called [facility], agreeable to review. Clinicals faxed to [phone]
Addendum entered by Alize Carey 11/10/24 11:14:
Received call from [facility], declined admission
Addendum entered by Alize Carey 11/10/24 11:06:
Additional referral sent to [facility], faxed to [phone]
Received call from [facility], briefly reviewed patient. Requested PT eval, faxed to [phone]. Will review w/ provider and confirm if patient's insurance is in network. CM awaiting call back w/ determination
Addendum entered by Alize Carey 11/10/24 10:44:
Received call from [facility], declined due to bad rapport w/ [facility] but will fwd clinicals to [facility] and [facility]
Received call from [facility], declined due to medical reasons
Received a call from [facility], will have to further review w/ doctor to determine if pt will need to be admitted to medical psych due to pt's hx w/ a stroke and prev being in [facility] since August. Will await call back w/ determination
Original Note:
[facility] declined admission due to medical reasons
[facility] declined admission due to medical reasons
CM called [facility] admissions [phone], agreed to review clinicals. Sent via fax [phone]
CM called [facility] admissions [phone], agreed to review clinicals. Sent via fax [phone]
Sent additional referral to [facility]. Sent via fax to [phone]
Patient refused nocturnal study per chart and refusing neb treatment
--- NOTE | 2024-11-10 10:54 | W.PN.HOSP.TC ---
Today's Communication/Plan
-
d/c to inpatient psych as soon as accepted - no indication for further medical mgmt inpatient
CM, psychiatry service aware
Assessment / Plan
Assessment / Plan
59yo F with PMHx of cholecystectomy, seizure d/o, VSD repair at age 12, HTN, Hx of opioid dependence on Suboxone, neuropathy, chronic nausea from Suboxone, anxiety sent from STR due to ongoinf SOB without hypoxia. In ED found with suicidal thoughts,
so crisis called for admission to inpatient psychiatry, however due to ongoinf medical issues -was not accepted. Managed for dyspnea due to possible CHF as mild pulmonary edema seen on CT chest. Also started to complain of epigastric abd pain with
bloating and distension next day after admission. Cardiac w/u neg, CT chest with non-specific findings, trops neg,abd CT neg for acute findings. PAtient is not hypoxic without clinical findings of bronchospasm too. Medially stable for inpatient
pscyh unit
A/P:
#Dyspnea, acute diastolic CHF ruled out, most liekly LAVON
Needs sleep tudy eventually as outpatient. Attempted nocturnal O2 study for prelim results - patient declined.
proBNP low
serial trop
Lasix, daily weights, electrolytes, follow Cr
Cardiology consult
Echo: Normal biventricular size and systolic function without regional wall motion abnormality. LVEF 55%, ectatic aortic root 3.8cm - outpatient follow up with echo in 1 year with demurrage worker
telemetry
No pulmonary embolism on CT
No wheezing - no need for bronchodilators
#Epigastric abdominal pain
CT abd/pelvs without acute findings
Tums
#MDD with suicidal ideation
Suicidal precautions
1:1
psychiatric consult
Eventual IP by CM
#Essential HTN
#Hx of opioid dependency
#Neuropathy
#Seizure d/o
#Insomnia
#Fatty liver
low fat diet
cont home meds
Ativan PRN
seizure precautions
#Mild anemia
outpatient w/u
DVT ppx lovenox
Full code
I have spent at least 51min reviewing chart, test results, communication with consultants and providing diret patient care
Anticipated Discharge: Within 24 hours
Subjective/Interval History
-
Date of Service: November 10, 2024
Objective Data
-
Vital Signs:
Vital Signs
Temp Pulse Resp BP Pulse Ox
98.1 F 85 16 141/92 93
11/09/24 19:36 11/10/24 08:28 11/10/24 08:28 11/10/24 08:28 11/10/24 08:28
I&O
11/09/24 11/10/24 11/11/24
06:59 06:59 06:59
Intake Total 960 / 960 960 / 960
Balance 960 / 960 960 / 960
Review of Systems
-
History Source: Patient
All other systems: Reviewed and negative
Physical Exam
-
General: Comfortable
HEENT: Normocephalic
Respiratory: Clear to Auscultation; Negative Wheezes or Crackles
GI: Soft, Nontender and Nondistended
Neuro: Awake, Alert, Oriented and AO x 3
Psych: Suicidal
--- NOTE | 2024-11-10 12:56 | W.PN.UPDATE ---
Update Note
Progress Note Update
patient seen chart reviewed. patient is in a lot of discomfort from cracking a filling. motrin would help most but she is allergic. will try tylenol and oragel. patient continues to be depressed. she continues with si but is willing to go to
psych. cm came in and explained to her the facilities that are willing to accept her to which patient agreed. cm will keep patient posted. continue w current psych medications ( ativan and lexapro as other meds which could be considered psych are
being managed by hospitalist.) continue one to one for now.
[2024-11-10] MEDS: TYLENOL 650 MG PO (13:26)
[2024-11-10] MEDS: ORAJEL 10% GEL 1 APPLIC TOPICAL ×2 (15:07→21:09)
[2024-11-10 15:14] VITALS: BP 134/85
[2024-11-10] MEDS: LOVENOX 40 MG SC (17:19)
[2024-11-10] MEDS: REMOVE LIDOCAINE PATCH 1 PATCH REMOVE (21:04)
[2024-11-10] MEDS: LYRICA 100 MG PO (21:08)
[2024-11-10] MEDS: AMBIEN 5 MG PO (21:19)
[2024-11-11 07:15] VITALS: BP 151/108
[2024-11-11] MEDS: LEXAPRO 10 MG PO (08:21)
[2024-11-11] MEDS: LASIX 10 MG PO (08:21)
[2024-11-11] MEDS: PHENERGAN 25 MG PO ×2 (08:21→21:05)
[2024-11-11] MEDS: DEPAKOTE (12 HR RELEASE) 250 MG PO ×2 (08:22→20:52)
[2024-11-11] MEDS: ATIVAN 1 MG PO ×3 (08:22→21:05)
[2024-11-11] MEDS: SUBUTEX 16 MG SL (08:22)
[2024-11-11] MEDS: COLACE 100 MG PO ×2 (08:22→20:51)
[2024-11-11] MEDS: ORAJEL 10% GEL 1 APPLIC TOPICAL ×3 (08:23→21:06)
[2024-11-11] MEDS: CATAPRES 0.1 MG PO ×3 (08:23→21:06)
[2024-11-11] MEDS: LYRICA 50 MG PO (08:23)
[2024-11-11] MEDS: LIDOCAINE 4% PATCH TOPICAL (08:24)
--- NOTE | 2024-11-11 10:11 | W.PN.HOSP.TC ---
Today's Communication/Plan
-
pending inpatient psych
Assessment / Plan
Assessment / Plan
59yo F with PMHx of cholecystectomy, seizure d/o, VSD repair at age 12, HTN, Hx of opioid dependence on Suboxone, neuropathy, chronic nausea from Suboxone, anxiety sent from STR due to ongoinf SOB without hypoxia. In ED found with suicidal thoughts,
so crisis called for admission to inpatient psychiatry, however due to ongoinf medical issues -was not accepted. Managed for dyspnea due to possible CHF as mild pulmonary edema seen on CT chest. Also started to complain of epigastric abd pain with
bloating and distension next day after admission. Cardiac w/u neg, CT chest with non-specific findings, trops neg,abd CT neg for acute findings. PAtient is not hypoxic without clinical findings of bronchospasm too. Medially stable for inpatient
pscyh unit
A/P:
#Dyspnea, acute diastolic CHF ruled out, most liekly LAVON
Needs sleep tudy eventually as outpatient. Attempted nocturnal O2 study for prelim results - patient declined.
proBNP low
serial trop
Lasix, daily weights, electrolytes, follow Cr
Cardiology consult
Echo: Normal biventricular size and systolic function without regional wall motion abnormality. LVEF 55%, ectatic aortic root 3.8cm - outpatient follow up with echo in 1 year with molder floor
telemetry
No pulmonary embolism on CT
No wheezing - no need for bronchodilators
#Epigastric abdominal pain
CT abd/pelvs without acute findings
Tums
#MDD with suicidal ideation
Suicidal precautions
1:1
psychiatric consult
Eventual IP by CM
#Essential HTN
#Hx of opioid dependency
#Neuropathy
#Seizure d/o
#Insomnia
#Fatty liver
low fat diet
cont home meds
Ativan PRN
seizure precautions
#Mild anemia
outpatient w/u
DVT ppx lovenox
Full code
I have spent at least 51min reviewing chart, test results, communication with consultants and providing diret patient care
Anticipated Discharge: Within 24 hours
Subjective/Interval History
-
Date of Service: November 11, 2024
Objective Data
-
Vital Signs:
Vital Signs
Temp Pulse Resp BP Pulse Ox
98.1 F 92 18 151/108 94
11/09/24 19:36 11/11/24 07:15 11/11/24 07:15 11/11/24 07:15 11/11/24 07:15
I&O
11/10/24 11/11/24 11/12/24
06:59 06:59 06:59
Intake Total 960 / 960 960 / 960
Balance 960 / 960 960 / 960
Physical Exam
-
General: No Apparent Distress
Psych: Calm and Suicidal
--- NOTE | 2024-11-11 12:11 | W.PN.UPDATE ---
Update Note
Progress Note Update
Patient is still very depressed and has suicidal thoughts but no plan. Appetite is poor but denies insomnia. Affect is restricted, mood depressed.
Will increase the Lexapro to 20 mg daily.
Hopefully inpatient treatment can be arranged [facility].
[2024-11-11 15:34] VITALS: BP 134/95
[2024-11-11] MEDS: LOVENOX 40 MG SC (17:04)
[2024-11-11] MEDS: REMOVE LIDOCAINE PATCH 1 PATCH REMOVE (20:53)
[2024-11-11] MEDS: LYRICA 100 MG PO (21:05)
[2024-11-11] MEDS: AMBIEN 5 MG PO (21:19)
[2024-11-11 23:15] VITALS: BP 131/69
[2024-11-12 07:00] VITALS: BP 134/84
[2024-11-12 07:56] VITALS: BMI 33.9
[2024-11-12] MEDS: LASIX 10 MG PO (08:02)
[2024-11-12] MEDS: PHENERGAN 25 MG PO (08:02)
[2024-11-12] MEDS: LEXAPRO 20 MG PO (08:03)
[2024-11-12] MEDS: ATIVAN 1 MG PO ×3 (08:03→21:30)
[2024-11-12] MEDS: CATAPRES 0.1 MG PO ×3 (08:03→21:06)
[2024-11-12] MEDS: LYRICA 50 MG PO (08:03)
[2024-11-12] MEDS: DEPAKOTE (12 HR RELEASE) 250 MG PO ×2 (08:03→21:09)
[2024-11-12] MEDS: COLACE 100 MG PO ×2 (08:03→21:09)
[2024-11-12] MEDS: SUBUTEX 16 MG SL (08:03)
[2024-11-12] MEDS: LIDOCAINE 4% PATCH TOPICAL (08:04)
[2024-11-12] MEDS: ORAJEL 10% GEL TOPICAL ×3 (08:57→21:10)
[2024-11-12] MEDS: BENADRYL 25 MG PO (09:59)
--- NOTE | 2024-11-12 11:21 | W.PN.HOSP.TC ---
Today's Communication/Plan
-
medically stable for d/c to inpatient psych - CM informed
Assessment / Plan
Assessment / Plan
59yo F with PMHx of cholecystectomy, seizure d/o, VSD repair at age 12, HTN, Hx of opioid dependence on Suboxone, neuropathy, chronic nausea from Suboxone, anxiety sent from STR due to ongoinf SOB without hypoxia. In ED found with suicidal thoughts,
so crisis called for admission to inpatient psychiatry, however due to ongoinf medical issues -was not accepted. Managed for dyspnea due to possible CHF as mild pulmonary edema seen on CT chest. Also started to complain of epigastric abd pain with
bloating and distension next day after admission. Cardiac w/u neg, CT chest with non-specific findings, trops neg,abd CT neg for acute findings. PAtient is not hypoxic without clinical findings of bronchospasm too. Medially stable for inpatient
pscyh unit
A/P:
#Dyspnea, acute diastolic CHF ruled out, most liekly LAVON
Needs sleep tudy eventually as outpatient. Attempted nocturnal O2 study for prelim results - patient declined.
proBNP low
serial trop
Lasix, daily weights, electrolytes, follow Cr
Cardiology consult
Echo: Normal biventricular size and systolic function without regional wall motion abnormality. LVEF 55%, ectatic aortic root 3.8cm - outpatient follow up with echo in 1 year with elevated work platform operator
telemetry
No pulmonary embolism on CT
No wheezing - no need for bronchodilators
#Epigastric abdominal pain
CT abd/pelvs without acute findings
Tums
#MDD with suicidal ideation
Suicidal precautions
1:1
psychiatric consult
Eventual IP by CM
#Essential HTN
#Hx of opioid dependency
#Neuropathy
#Seizure d/o
#Insomnia
#Fatty liver
low fat diet
cont home meds
Ativan PRN
seizure precautions
#Mild anemia
outpatient w/u
DVT ppx lovenox
Full code
I have spent at least 51min reviewing chart, test results, communication with consultants and providing diret patient care
Anticipated Discharge: Within 24 hours
Subjective/Interval History
-
Date of Service: November 12, 2024
Objective Data
-
Vital Signs:
Vital Signs
Temp Pulse Resp BP Pulse Ox
97.6 F 87 14 134/84 97
11/12/24 07:00 11/12/24 08:02 11/12/24 07:00 11/12/24 08:02 11/12/24 07:00
I&O
11/11/24 11/12/24 11/13/24
06:59 06:59 06:59
Intake Total 960 / 960 1320 / 1320
Balance 960 / 960 1320 / 1320
Review of Systems
-
History Source: Patient
All other systems: Reviewed and negative
Physical Exam
-
General: No Apparent Distress
Respiratory: Negative Wheezes or Crackles
GI: Soft
Musculoskeletal: No Clubbing, No Cyanosis and No Edema
Neuro: Awake, Alert, Oriented and AO x 3
Psych: Suicidal
--- NOTE | 2024-11-12 11:52 | W.PN.UPDATE ---
Update Note
Progress Note Update
Patient is basically unchanged since yesterday. Affect restricted, mood depressed, still reports suicidal thoughts.
I did increase the Lexapro yesterday to 20 mg, of course the response if any cannot yet be expected. Inpatient psychiatric treatment is recommended.
Will continue F/U.
[2024-11-12 15:00] VITALS: BP 110/83
--- NOTE | 2024-11-12 16:06 | CM ---
Addendum entered by Octavia May 11/13/24 09:25:
Per nursing Kimberli called and stated patient could not go to [facility] d/t Subutex
Original Note:
Received call from Kimberli in admissions ([phone]) from [facility] & they can accept patient
bed available tomorrow - notified patient semi private room agreed
they would like after 2 transport
[facility]: [phone]
Fax #: [phone]
transport forms on chart
[2024-11-12] MEDS: LOVENOX 40 MG SC (17:20)
[2024-11-12] MEDS: ATIVAN PO (21:09)
[2024-11-12] MEDS: LYRICA 100 MG PO (21:09)
[2024-11-12] MEDS: REMOVE LIDOCAINE PATCH REMOVE (21:10)
[2024-11-12] MEDS: TYLENOL 650 MG PO (21:12)
[2024-11-12] MEDS: AMBIEN 5 MG PO (21:13)
[2024-11-12 23:00] VITALS: BP 109/69
--- NOTE | 2024-11-12 23:31 | PTCARENOTE ---
2108:
Medications scanned and provided to patient. RN turned to check the EMR . Pt dumped the pills into her hand and asked the RN which on was the Ativan. RN looked through the pills and was unable to identify it by site. Pt stated that she did not see
it. RN reclaimed the pill from the pt, identified each pill using an online database and was unable to locate the Ativan tablet. RN's COW, pts sheets and gown, and the floor where searched by this RN and other staff members including the 1:1. Pt
became indignant and accusatory toward staff when asked to search the bed and clothing but ended up agreeing with the request. Supervior and head charger was made aware. An additional dose was puled and administered to the pt.
[2024-11-13 06:00] VITALS: BMI 33.8
[2024-11-13 07:00] VITALS: BP 124/87
--- NOTE | 2024-11-13 07:12 | W.PN.HOSP.TC ---
Today's Communication/Plan
-
Discharge today
Assessment / Plan
Assessment / Plan
Physical Exam
General: No Apparent Distress
Respiratory: Negative Wheezes or Crackles
GI: Soft
Musculoskeletal: No Cyanosis and No Edema
Neuro: Awake, Alert, Oriented and AO x 3
Psych: Suicidal
Assessment/Plan
59yo F with PMHx of cholecystectomy, seizure d/o, VSD repair at age 12, HTN, Hx of opioid dependence on Suboxone, neuropathy, chronic nausea from Suboxone, anxiety sent from STR due to ongoinf SOB without hypoxia. In ED found with suicidal thoughts,
so crisis called for admission to inpatient psychiatry, however due to ongoinf medical issues -was not accepted. Managed for dyspnea due to possible CHF as mild pulmonary edema seen on CT chest. Also started to complain of epigastric abd pain with
bloating and distension next day after admission. Cardiac w/u neg, CT chest with non-specific findings, trops neg,abd CT neg for acute findings. PAtient is not hypoxic without clinical findings of bronchospasm too. Medially stable for inpatient
pscyh unit
#Dyspnea, acute diastolic CHF ruled out, most liekly LAVON
Needs sleep study eventually as outpatient. Attempted nocturnal O2 study for prelim results - patient declined.
proBNP low
Serial troponins negative
Lasix
Cardiology consult
Echo: Normal biventricular size and systolic function without regional wall motion abnormality. LVEF 55%, ectatic aortic root 3.8cm - outpatient follow up with echo in 1 year with slice plug cutter operator helper
telemetry
No pulmonary embolism on CT
No wheezing - no need for bronchodilators
#Epigastric abdominal pain - RESOLVED
CT abdomen/pelvis without acute findings
Tums
#Major Depressive Disorder with suicidal ideation
Suicidal precautions
1:1
psychiatric consult
Eventual IP by CM
#History of CVA (per patient, but needs to be confirmed)
#Essential Hypertension
#History of opioid dependency
#Neuropathy
#Seizure disorder
#Insomnia
#Fatty liver
low fat diet
cont home meds
Ativan PRN
seizure precautions
#LE edema
-Continue low dose Lasix
#Mild anemia
outpatient w/u
#Bipolar Disorder
#Anxiety/depression
#ETOH use (per patient, only occasionally)
#Obesity,
#History VSD repair as child
DVT ppx lovenox
Full code
More than 30 minutes spent in discharge including
Final examination of the patient
Summarizing hospital stay
Instructions for continuing care to all relevant caregivers
Preparation of discharge records, prescriptions, and referral forms
Total time spent (in minutes): 39
Anticipated Discharge: Today
Subjective/Interval History
-
Date of Service: November 13, 2024
Patient was seen and examined. She denied any new symptoms.
Objective Data
-
Vital Signs:
Vital Signs
Temp Pulse Resp BP Pulse Ox
97.8 F 83 18 109/69 100
11/12/24 23:00 11/12/24 23:00 11/12/24 23:00 11/12/24 23:00 11/12/24 15:00
I&O
11/12/24 11/13/24 11/14/24
06:59 06:59 06:59
Intake Total 1320 / 1320 960 / 960
Balance 1320 / 1320 960 / 960
[2024-11-13] MEDS: LYRICA 50 MG PO (07:43)
[2024-11-13] MEDS: LEXAPRO 20 MG PO (07:43)
[2024-11-13] MEDS: SUBUTEX 16 MG SL (07:43)
[2024-11-13] MEDS: DEPAKOTE (12 HR RELEASE) 250 MG PO ×2 (07:43→21:06)
[2024-11-13] MEDS: COLACE 100 MG PO ×2 (07:43→21:07)
[2024-11-13] MEDS: LIDOCAINE 4% PATCH 1 PATCH TOPICAL (07:44)
[2024-11-13] MEDS: ORAJEL 10% GEL 1 APPLIC TOPICAL ×2 (07:45→17:01)
[2024-11-13] MEDS: CATAPRES 0.1 MG PO ×3 (07:46→21:06)
[2024-11-13] MEDS: LASIX 10 MG PO (07:47)
[2024-11-13] MEDS: ATIVAN 1 MG PO ×3 (07:47→21:07)
[2024-11-13] MEDS: PHENERGAN 25 MG PO ×2 (07:51→21:27)
--- NOTE | 2024-11-13 11:12 | W.PN.UPDATE ---
Update Note
Progress Note Update
pt seen by me today, chart reviewed, spoke with Dr Drew and team. Pt complains of depression, not liking living in [place]. says she should be able to go home to live in parents' former home in [place] (though says brother lives there as
well and the two do not always get along.) Has had difficulties with medication administration, had accused RN o elsaiverting one of her ativan, as well as having mistakenly swallowed a suboxone film this am (as she did last week) and needing extrad
dose therefore. Reviewed literature on bioavailability of swallowed vs sublingual buprenorphine--though there is a small difference (no first pass effect when absorbed sublingually0 not usually clinically significant. Pt with no signs of withdrawal;
we discussed need to not be in conflict with team over meds if she is to get appropriate psychiatric placement. Agrees to this plan. not asking for more suboxone.
--- NOTE | 2024-11-13 11:20 | CM ---
Pt is cleared for discharge to inpatient psych facility. [facility] has a bed available for today pending review of labs. [facility] in [place] admissions notified of remote history of seizures, pt now on depakote.
Plan: CM to coordinate transport to [facility] pending acceptance.
--- NOTE | 2024-11-13 13:39 | CM ---
Cydney has been accepted to [facility] in [place] today. TT to Dr. Han to make him aware of acceptance.
Ambulance transport requested; scheduled 8pm picker. Call placed to [facility] and awaiting return call for ambulance authorization.
Cydney is agreeable to transfer and happy that she will be leaving this evening.
[facility] Report: [phone]
Laya
[2024-11-13 14:55] VITALS: BP 111/71
[2024-11-13] MEDS: LOVENOX 40 MG SC (17:01)
--- NOTE | 2024-11-13 20:23 | PTCARENOTE ---
second attempt to call report to to [facility]. no one will take report at this time. will attempt again. pt leaving at 2100
[2024-11-13 20:45] VITALS: BP 166/78
[2024-11-13] MEDS: LYRICA 100 MG PO ×2 (21:06→21:07)
[2024-11-13] MEDS: REMOVE LIDOCAINE PATCH 1 PATCH REMOVE (21:08)
[2024-11-13] MEDS: ORAJEL 10% GEL TOPICAL (21:08)
[2024-11-13] MEDS: AMBIEN 5 MG PO (21:14)
--- NOTE | 2024-11-13 21:36 | PTCARENOTE ---
pt dc'd with all belongings by ambulance. initially was refund discharge then agreed after a big scene. attempt to call report to next facility unsuccessful- no one would get on the phone- they took our number down to call back for report
--- NOTE | 2024-11-13 23:05 | PTCARENOTE ---
facility called back report given
== END 2024-11-13 21:35 | DRG 155 ==
LOC: 3 WEST ACU 21:01
PROVIDERS: Internal Medicine; Registered Nurse; Student in an Organized Health Care Education/Training Program; ADMITTING PHYSICIAN Internal Medicine; ATTENDING PHYSICIAN Hospitalist; CONSULT PHYSICIAN Student in an Organized Health Care Education/Training Program; EMERGENCY PHYSICIAN Emergency Medicine; FAMILY PHYSICIAN Internal Medicine; OTHER PHYSICIAN Psychiatry & Neurology Psychiatry
DX: G47.33 Obstructive sleep apnea (adult) (pediatric) (principal); I69.354 Hemiplegia and hemiparesis following cerebral infarction affecting left non-dominant side; R45.851 Suicidal ideations; G40.909 Epilepsy, unspecified, not intractable, without status epilepticus; F32.9 Major depressive disorder, single episode, unspecified; F31.9 Bipolar disorder, unspecified; Z87.74 Personal history of (corrected) congenital malformations of heart and circulatory system; E11.9 Type 2 diabetes mellitus without complications; G89.29 Other chronic pain; F41.9 Anxiety disorder, unspecified; G47.00 Insomnia, unspecified; K59.00 Constipation, unspecified; I10 Essential (primary) hypertension; Z79.899 Other long term (current) drug therapy; Z82.49 Family history of ischemic heart disease and other diseases of the circulatory system; Z88.6 Allergy status to analgesic agent; Z91.041 Radiographic dye allergy status
CPT/HCPCS: 71045; 71275; 74177; 80048; 80053; 80061; 80076; 80164; 80306; 80307; 82607; 82746; 83690; 83735; 83880; 84443; 84484; 85025; 87070; 93005; 93306; 96374; 96375; 96376; 97110; 97163; 99285; Q9967